=== PATIENT | female | born 1950 | race Caucasian/White ===

== ENCOUNTER → 2018-11-14 | Outpatient (CLI) | payer OTHER, MEDICARE | LOC: NUC 11:29 | DX: M25.561 Pain in right knee (principal); Z96.651 Presence of right artificial knee joint ==

== ENCOUNTER → 2019-09-04 | Outpatient (CLI) | payer OTHER, MEDICARE | LOC: NUC 08-21 16:03 | DX: M17.12 Unilateral primary osteoarthritis, left knee (principal); M25.561 Pain in right knee; Z96.651 Presence of right artificial knee joint ==

== ENCOUNTER → 2021-08-11 | Day surgery (SDC) | payer OTHER, MEDICARE ==
[~2021-08-11] VITALS: Ht 154.9 cm; Wt 59.0 kg
[~2021-08-11] MED LIST: COZAAR 25 MG TA25 M1 PO; DULOXETINE HCL60 MG PO; ELIQUIS5 MG PO; IMDUR 30 MG TAB30 M1 PO; LEVOTHYROXINE88 MCG PO; PREGABALIN75 MG PO; ROSUVASTATIN CA40 MG PO; TRAMADOL HCL E100 M1 PO; VITAMIN D31250 MC1 PO
--- NOTE | ~2021-08-11 | O ---
[facility] [place] [address] OPERATIVE REPORT Name: SLIME QUIROS Room #: [facility] [facility]..#: [id number] Admission: 08/11/21 Attend Phys: Rochelle Guzman, Discharge: Date of : 52 Report #: [id number] THIS REPORT FOR: cc: Good Chavez MD, Scott M. MD Deardorff, Valerie A. MD ~ DATE OF SERVICE: 08/11/2021 PREOPERATIVE DIAGNOSIS: Right distal radius fracture, extraarticular. POSTOPERATIVE DIAGNOSIS: Right distal radius fracture, extraarticular. PROCEDURE PERFORMED: Open reduction internal fixation, right distal radius fracture, displaced, extraarticular. SURGEON: Rochelle Guzman MD TYPE OF ANESTHESIA: General mask anesthesia. ESTIMATED BLOOD LOSS: Minimal. TOURNIQUET TIME: 32 minutes. COMPLICATIONS: None. CONDITION: Stable. DISPOSITION: To recovery room. IMPLANTS: Arthrex volar distal radius locking plate. INDICATIONS: The patient is a 71-year-old female with the above-mentioned diagnosis. She elects for operative treatment. The risks, benefits, alternatives and complications were discussed including but not limited to infection, damage to vessels, nerves, incomplete relief or worsening of any symptoms. Informed consent was obtained, the correct extremity was identified and labeled myself after verbal confirmation of the patient as well as visual confirmation and signed informed consent. DESCRIPTION OF PROCEDURE: The patient was brought to the operating room and placed on the operating table in the supine position. She received preoperative antibiotics. Tourniquet was placed over padding. The patient's right upper extremity was sterilely prepped and draped in the usual fashion. Final timeout was taken to verify correct patient, operative procedure, operative site. All agreed. The arm was elevated, exsanguinated and the tourniquet inflated. Next, a volar approach was done to the distal radius over the FCR tendon. Dissection [facility] [address] [place] [address] OPERATIVE REPORT Name: SLIME QUIROS Room #: [facility].#: [id number] Admission: 08/11/21 Attend Phys: Rochelle Guzman, Discharge: Date of : 52 Report #: [id number] was carried down through subcutaneous tissue with tenotomy scissors. The FCR sheath was incised. The sub-sheath was incised. The volar contents were retracted ulnarly and the radial aspect of the pronator quadratus was incised. It was then elevated off the fracture. The fracture site was easily identified and using fluoroscopic guidance at this point, I was able to determine that the fracture was dorsally displaced, however, did not appear to be intra-articular as was originally thought. There was a significant amount of dorsal angulation. Next, the fracture was reduced. An Arthrex narrow distal radius locking plate was placed on to the bone and was found to be the appropriate size and a cortical screw was placed in the gliding hole in the shaft part of the plate. The plate was adjusted once it was found to be in the appropriate position and the fracture was reduced appropriately. The distal locking screws were drilled, measured, and the appropriate size screws were placed. These were all evaluated under both AP, lateral and lateral tilt views and showed it to be in good position. Next, a single locking screw was placed in the shaft and then a final third screw was placed. This was a cortical screw in the proximal most hole. The DRUJ was assessed. It was stable in all planes of rotation. The radial ulnar deviation of the wrist showed consistent scapholunate interval. The AP, lateral, and lateral tilt views showed good position of the fracture and the hardware. The wound was thoroughly irrigated. The pronator quadratus was reapproximated over the plate. The skin was closed with 3-0 Monocryl, then 4-0 Monocryl and Steri-Strips after infiltrating the subcutaneous tissue with approximately 5 mL of 0.25% Marcaine. She was placed in a bulky dressing and a volar slab splint. All fingers were pink with brisk capillary refill at the conclusion of the case. All sponge and needle counts were correct. The patient was transferred to postoperative recovery room in stable condition. By: [id number] Rochelle Guzman MD /gian
[2021-08-11 12:55] VITALS: BP 141/66
[2021-08-11 16:12] VITALS: BP 141/66
== END | disposition home or self-care (01) ==
LOC: OR 11:33
PROVIDERS: ATTEND Orthopaedic Surgery Hand Surgery
DX: S52.551A Other extraarticular fracture of lower end of right radius, initial encounter for closed fracture (principal); I10 Essential (primary) hypertension; I25.2 Old myocardial infarction; E78.5 Hyperlipidemia, unspecified; F17.210 Nicotine dependence, cigarettes, uncomplicated; Z98.890 Other specified postprocedural states; Z79.899 Other long term (current) drug therapy; Z20.822 Contact with and (suspected) exposure to COVID-19; Z90.710 Acquired absence of both cervix and uterus; Z90.49 Acquired absence of other specified parts of digestive tract; Z88.0 Allergy status to penicillin; Z91.041 Radiographic dye allergy status; Z88.8 Allergy status to other drugs, medicaments and biological substances; X58.XXXA Exposure to other specified factors, initial encounter; Y93.89 Activity, other specified; Y92.89 Other specified places as the place of occurrence of the external cause; Y99.8 Other external cause status
CPT/HCPCS: 50010; 50101; 50386; 56526; 56527; 57006; 57091; 57178; 58235; 58236; 58237; 58319; 59117; 62110; 62900; 70005